=== PATIENT | female | born 1950 | race Caucasian/White ===

== ENCOUNTER 2016-12-14 08:00 | Outpatient (CLI) | payer MEDICARE, OTHER ==
[2016-12-14 21:16] LABS: H. PYLORI IGG ANTIBODY Negative (Negative); HPYLORI NEG QC Negative (Negative); HPYLORI POS QC POSITIVE (Positive)
== END 2016-12-14 23:59 | disposition home or self-care (01) ==
LOC: LAB.WCP 08:00
PROVIDERS: ATTEND Family Medicine
DX: K21.9 Gastro-esophageal reflux disease without esophagitis (principal)
CPT/HCPCS: 36415; 87339

== ENCOUNTER → 2019-01-13 | Outpatient (CLI) | payer MEDICARE, OTHER ==
--- NOTE | 2019-01-14 19:09 | XRAY Report ---
Reason: COUGH Procedure Date: 01/13/2019 Accession Number: [id number] / [id number] Procedure: WCP - Chest 2 View X-Ray CPT Code: 64781 FULL RESULT: EXAM: CHEST RADIOGRAPHY EXAM DATE: 01/13/2019 11:25 AM. CLINICAL HISTORY: COUGH. COMPARISON: XR CHEST PA AND LAT 04/05/2007 12:25 PM. TECHNIQUE: 2 views. FINDINGS: Lungs/Pleura: Patchy left lower lobe opacity. No vascular congestion. Right cardiophrenic density also present. No pneumothorax. No pleural effusions. No vascular congestion. Mediastinum: Heart size upper normal. Aorta is mildly tortuous. Other: Degenerative changes of the thoracic spine. IMPRESSION: 1. Patchy left lower lobe opacity concerning for developing consolidation. Follow radiographs are recommended to reassess the left lower lobe opacity and right cardiophrenic density. 2. Right cardiophrenic density new compared to the radiographs from 04/05/2007. RADIA
== END ==
LOC: DI.WCP 11:15 → EDSTATUS 13:18
PROVIDERS: ATTEND Family Medicine
DX: R91.8 Other nonspecific abnormal finding of lung field (principal)
CPT/HCPCS: 71046

== ENCOUNTER → 2019-01-24 | Outpatient (CLI) | payer MEDICARE, OTHER ==
--- NOTE | 2019-01-24 10:11 | XRAY Report ---
Reason: COUGH Procedure Date: 01/24/2019 Accession Number: [id number] / [id number] Procedure: WCP - Chest 2 View X-Ray CPT Code: 80030 FULL RESULT: EXAM: CHEST RADIOGRAPHY EXAM DATE: 01/24/2019 09:32 AM. CLINICAL HISTORY: Cough. COMPARISON: CHEST 2 VIEW 01/13/2019 11:07 AM XR CHEST PA AND LAT 04/05/2007 12:25 PM. TECHNIQUE: 2 views. FINDINGS: Lungs/Pleura: The right lung appears clear. Persistent minimal atelectasis or infiltrate at the anterior left lung base. No pleural fluid collections. Mediastinum: Heart and mediastinal contours are unremarkable. Other: None. IMPRESSION: Persistent minimal atelectasis or infiltrate left lung base. Right lung base appears clear. RADIA
== END ==
LOC: DI.WCP 09:20 → EDSTATUS 13:26
PROVIDERS: ATTEND Family Medicine
DX: R91.8 Other nonspecific abnormal finding of lung field (principal)
CPT/HCPCS: 71046

== ENCOUNTER → 2019-02-20 | Outpatient (CLI) | payer MEDICARE, OTHER ==
--- NOTE | 2019-02-20 23:07 | XRAY Report ---
Reason: COUGH Procedure Date: 02/20/2019 Accession Number: [id number] / [id number] Procedure: WCP - Chest 2 View X-Ray CPT Code: 73807 FULL RESULT: EXAM: CHEST RADIOGRAPHY. EXAM DATE: 02/20/2019 09:42 AM. CLINICAL HISTORY: Cough. Pain in the bottom of the left scapula, going through the chest and into the left breast when breathing for the past 3 days. COMPARISON: CHEST 2 VIEW 01/24/2019 9:12 AM. CHEST 2 VIEW 01/13/2019 11:07 AM. TECHNIQUE: 2 views. FINDINGS: Lungs/Pleura: No focal opacities evident. No pleural effusion. No pneumothorax. Normal volumes. Mediastinum: Heart and mediastinal contours are unremarkable. Other: Moderate to severe multilevel thoracic degenerative change noted. IMPRESSION: Stable appearance of the chest without acute cardiopulmonary abnormality. RADIA
== END ==
LOC: DI.WCP 09:20 → EDSTATUS 13:46
PROVIDERS: ATTEND Family Medicine
DX: R05 Cough (principal)
CPT/HCPCS: 71046

== ENCOUNTER 2019-06-29 08:40 | Day surgery (SDC) | payer MEDICARE, OTHER ==
[~2019-06-29 08:40] MED LIST: BRIMONIDINE 0.2% OPHTH DROPS 5 ML ONE; BSS/LIDOCAINE/EPINEPHRINE 1 ML SYRINGE ONE; CYCLOPENTOLATE 1% OPHTH DROPS 2 ML ONE; PHENYLEPHRINE 2.5% OPHTH 2 ML DROPS ONE; PROPARACAINE 0.5% OPHTH DROPS 15 ML ONE; TIMOLOL 0.5% OPHTH DROPS ONE; TRIAMCIN/MOXIFLOX OPHTHALMIC 0.6 ML VIAL IO ONE; VANCOMYCIN OPHTHALMI 8MG/0.8ML 8 MG/0.8 ML SYRINGE IO ONE
[2019-06-29] MEDS ORDERED: MIDAZOLAM 2 MG/2 ML VIAL IVP ONE (08:41)
[2019-06-29] MEDS ORDERED: LACTATED RINGERS 500 ML IV ONE (08:44)
[2019-06-29] MEDS ORDERED: CYCLOPENTOLATE 1% OPHTH DROPS 2 ML LEFTEYE ONE (09:00)
[2019-06-29] MEDS ORDERED: KETOROLAC 0.45% OPHTH DROPS LEFTEYE ONE (09:00)
[2019-06-29] MEDS ORDERED: PROPARACAINE 0.5% OPHTH DROPS 15 ML LEFTEYE ONE ×2 (09:00→09:43)
[2019-06-29] MEDS ORDERED: PHENYLEPHRINE 2.5% OPHTH 2 ML DROPS LEFTEYE ONE (09:01)
--- NOTE | 2019-06-29 09:28 | ANESTHESIA ---
Pre-Anesthesia VS, & Labs - Diagnosis left nuclear cataract - Procedure left cataract extraction with intraocular lens implant Vital Signs: Temp Pulse Resp BP Pulse Ox 37 C 81 16 144/87 H 97 06/29/19 08:50 06/29/19 08:50 06/29/19 08:50 06/29/19 08:50 06/29/19 08:50 Height 5 ft 7 in Weight (kg) 117 kg - NPO >8 hours - Is Patient ?: Yes Home Medications and Allergies Home Medications: Ambulatory Orders No Known Home Medications 06/28/19 No Known Home Medications 06/28/19 Allergies/Adverse Reactions: Allergies Allergy/AdvReac Type Severity Reaction Status Date / Time No Known Drug Allergies Allergy Verified 06/28/19 13:09 Anes History & Medical History - Anesthetic History Anesthesia Complications: reports: No previous complications - Medical History Cardiovascular: reports: Murmur (cardiac workup 1 year ago at [facility] negative stress test) Pulmonary: reports: None, Shortness of breath (with exertion) Gastrointestinal: reports: None Urinary: reports: None Musculoskeletal: reports: Osteoarthritis Endocrine/Autoimmune: reports: None Skin: reports: None - Surgical History Orthopedic: Knee replacement Exam General: Alert Dental: WNL Mallampati classification: II Thyromental Distance: greater than 6 cm Respiratory: Lungs clear Cardiovascular: Regular rate, Other (2/6 murmur) Plan Anesthesia Type: MAC Consent for Procedure(s) Verified and Reviewed: Yes Code Status: Attempt Resuscitation ASA classification: 2-Mild systemic disease Is this case an emergency?: No
[2019-06-29] MEDS ORDERED: EPINEPHrine 1 MG/ML AMP IVP ONE (09:42)
[2019-06-29] MEDS ORDERED: BSS/LIDOCAINE/EPINEPHRINE 1 ML SYRINGE IO ONE (09:42)
[2019-06-29] MEDS ORDERED: BRIMONIDINE 0.2% OPHTH DROPS 5 ML OPTH ONE (09:42)
[2019-06-29] MEDS ORDERED: TIMOLOL 0.5% OPHTH DROPS OPTH ONE (09:42)
[2019-06-29] MEDS ORDERED: CHONDR SULF/HYALURONATE SYRINGE IO ONE (09:42)
[2019-06-29 10:17] VITALS: BP 135/85
--- NOTE | 2019-06-29 11:43 | OPERATIVE REPORT ---
DATE OF SERVICE: 06/29/2019 Physician: Amor Mayer MD PREOPERATIVE DIAGNOSIS: Visually significant cataract, left eye. This was her first cataract surger y. POSTOPERATIVE DIAGNOSIS: Visually significant cataract, left eye. This was her first cataract surge ry. DESCRIPTION OF PROCEDURE: Phacoemulsification with posterior chamber intraocular lens implant, left eye. SURGEON: Amor Mayer MD ANESTHESIA: Monitored anesthesia care. COMPLICATIONS: None. OPERATIVE INDICATIONS: This is a 68-year-old woman with progressive vision loss in the left eye due to 2+ nuclear sclerotic and 3+ cortical cataract. Best corrected visual acuity was 20/40, with glare to 20/125. Overall decrease in vision, difficulty seeing words on a computer screen, difficulty lorraine ding, difficulty seeing words, closed caption or game scores on TV, difficulty seeing street signs, d ifficulty driving in low light or at night, difficulty driving at night because of headlights from ot her vehicles, and difficulty with glare or bright lights in any situation. She was consented at [facility] concerning risks and benefits of cataract surgery, after which she expressed a desire to proceed w [facility] surgery. OPERATIVE PROCEDURE: Patient was taken to OR #3 and placed under monitored anesthesia care. Surgica l timeout was conducted confirming correct patient, correct procedure, and correct surgical site. Sh e was given topical anesthesia, and prepped and draped in the usual sterile fashion. The eye was ent ered at the 6 and 3 o'clock positions. Intracameral Shugarcaine was injected into the anterior chamb er, followed by Viscoat. A continuous-tear curvilinear capsulorrhexis was performed. The nucleus wa s hydrodissected and phacoemulsified. Cortex was evacuated using automated infusion and aspiration. Provisc was injected in the capsular bag, and a 20.0 diopter intraocular lens inserted in the bag. Infusion and aspiration was used to evacuate the viscoelastic materials. The eye was inflated to phy siologic pressure using balanced salt solution and found to be watertight. Approximately 0.25 mL of a mixture of triamcinolone, moxifloxacin was injected transsclerally into the vitreous and inferotemp oral quadrant. An additional 0.55 mL of a mixture of triamcinolone, moxifloxacin and vancomycin was injected subconjunctivally in the superior quadrant for infection and inflammation prophylaxis. Woun d integrity was checked with Weck-Deb sponges. Patient was taken from the operating room in good con dition and given postoperative instructions. TD: 06/29/2019 10:00
== END 2019-06-29 08:41 | disposition home or self-care (01) ==
LOC: SDS 08:40
PROVIDERS: ATTEND Ophthalmology
PROC: 08RK3JZ Replacement of Left Lens with Synthetic Substitute, Percutaneous Approach (ICD-10-PCS; principal; 2019-06-29 10:00)
DX: H25.12 Age-related nuclear cataract, left eye (principal); R01.1 Cardiac murmur, unspecified; Z96.659 Presence of unspecified artificial knee joint; Z87.891 Personal history of nicotine dependence; Z79.82 Long term (current) use of aspirin
CPT/HCPCS: 66984; A9270; J3490; V2632

== ENCOUNTER 2019-07-27 08:15 | Day surgery (SDC) | payer MEDICARE, OTHER ==
[~2019-07-27 08:15] MED LIST changes: -BRIMONIDINE 0.2% OPHTH DROPS 5 ML ONE; -BSS/LIDOCAINE/EPINEPHRINE 1 ML SYRINGE ONE; +KETOROLAC 0.45% OPHTH DROPS ONE; -TIMOLOL 0.5% OPHTH DROPS ONE; -TRIAMCIN/MOXIFLOX OPHTHALMIC 0.6 ML VIAL IO ONE; -VANCOMYCIN OPHTHALMI 8MG/0.8ML 8 MG/0.8 ML SYRINGE IO ONE
[2019-07-27] MEDS ORDERED: MIDAZOLAM 2 MG/2 ML VIAL IVP ONE (08:16)
[2019-07-27] MEDS ORDERED: BSS/LIDOCAINE/EPINEPHRINE 1 ML SYRINGE ONE (08:31)
[2019-07-27] MEDS ORDERED: BRIMONIDINE 0.2% OPHTH DROPS 5 ML ONE (08:31)
[2019-07-27] MEDS ORDERED: timoloL maleate 0.5% OPHTH DROPS (10ML) ONE (08:31)
[2019-07-27] MEDS ORDERED: VANCOMYCIN OPHTHALMI 8MG/0.8ML 8 MG/0.8 ML SYRINGE IO ONE ×2 (08:31→09:57)
[2019-07-27] MEDS ORDERED: TRIAMCIN/MOXIFLOX OPHTHALMIC 0.6 ML VIAL IO ONE ×2 (08:31→09:57)
[2019-07-27] MEDS ORDERED: LACTATED RINGERS 500 ML IV ONE (08:43)
[2019-07-27] MEDS ORDERED: PHENYLEPHRINE 2.5% OPHTH 2 ML DROPS RIGHTEYE ONE (08:55)
[2019-07-27] MEDS ORDERED: KETOROLAC 0.45% OPHTH DROPS RIGHTEYE ONE (08:55)
[2019-07-27] MEDS ORDERED: CYCLOPENTOLATE 1% OPHTH DROPS 2 ML RIGHTEYE ONE (08:55)
[2019-07-27] MEDS ORDERED: PROPARACAINE 0.5% OPHTH DROPS 15 ML RIGHTEYE ONE ×2 (08:55→09:56)
--- NOTE | 2019-07-27 09:15 | ANESTHESIA ---
Pre-Anesthesia VS, & Labs - Diagnosis right eye cataract removal - Procedure right eye cataract removal Vital Signs: Temp Pulse Resp BP Pulse Ox 36.8 C 76 20 143/71 H 96 07/27/19 08:43 07/27/19 08:43 07/27/19 08:43 07/27/19 08:43 07/27/19 08:43 Height 5 ft 6 in Weight (kg) 119 kg - Is Patient ?: No Home Medications and Allergies No Known Home Medications 06/28/19 Allergies/Adverse Reactions: Allergies Allergy/AdvReac Type Severity Reaction Status Date / Time No Known Drug Allergies Allergy Verified 07/27/19 08:31 Anes History & Medical History - Anesthetic History Anesthesia Complications: reports: No previous complications Family history of Anesthesia Complications: Denies Family history of Malignant Hyperthermia: Denies - Medical History Cardiovascular: reports: None, Murmur Pulmonary: reports: None, Shortness of breath Gastrointestinal: reports: None Urinary: reports: None Neuro: reports: None Musculoskeletal: reports: Osteoarthritis Endocrine/Autoimmune: reports: None Blood Disorders: reports: None Skin: reports: None Smoking Status: Never smoker Psychosocial: reports: No issues indicated, Alcohol (daily two glasses of wine) - Surgical History Eyes Ears Nose Throat (EENT): Cataracts Orthopedic: Knee replacement Exam General: Alert, Oriented x3, Cooperative, No acute distress Dental: WNL Mouth Openin Fingerbreadth Neck Mobility: Normal Mallampati classification: I Thyromental Distance: 4-6 cm Respiratory: Lungs clear, Normal breath sounds, No respiratory distress, No accessory muscle use Cardiovascular: Regular rate, Normal S1, Normal S2, No murmurs Abdomen: Normal bowel sounds, Soft, No tenderness, No hepatospenomegaly, No mas ses Extremities: No clubbing, No cyanosis, No edema, Normal pulses, No tenderness/swelling Neurological: Normal gait, Normal speech, Strength at 5/5 X4 ext, Normal tone, Sensation intact, Cranial nerves 3-12 NL, Reflexes 2+ Mental/Cognitive Status: Alert/Oriented X3, Normal for patient Cognitive Status: Within normal limits Plan Anesthesia Type: MAC Consent for Procedure(s) Verified and Reviewed: Yes Code Status: Attempt Resuscitation ASA classification: 2-Mild systemic disease Is this case an emergency?: No
[2019-07-27] MEDS ORDERED: BRIMONIDINE 0.2% OPHTH DROPS 5 ML OPTH ONE (09:55)
[2019-07-27] MEDS ORDERED: CHONDR SULF/HYALURONATE SYRINGE IO ONE (09:56)
[2019-07-27] MEDS ORDERED: EPINEPHrine 1 MG/ML AMP IVP ONE (09:56)
[2019-07-27] MEDS ORDERED: BSS/LIDOCAINE/EPINEPHRINE 1 ML SYRINGE IO ONE (09:56)
[2019-07-27] MEDS ORDERED: TIMOLOL 0.5% OPHTH DROPS OPTH ONE (09:56)
[2019-07-27 10:29] VITALS: BP 141/81
--- NOTE | 2019-07-27 10:40 | OPERATIVE REPORT ---
DATE OF SERVICE: 07/27/2019 Physician: Amor Mayer MD PREOPERATIVE DIAGNOSIS: Visually significant cataract, right eye. Cataract surgery was performed on her left eye on 06/29/2019. POSTOPERATIVE DIAGNOSIS: Visually significant cataract, right eye. Cataract surgery was performed o n her left eye on 06/29/2019. PROCEDURE: Phacoemulsification with posterior chamber intraocular lens implant, right eye. SURGEON: Amor Mayer MD ANESTHESIA: Monitored anesthesia care. COMPLICATIONS: None. OPERATIVE INDICATIONS: This is a 68-year-old woman with progressive vision loss in the right eye due to 2+ nuclear sclerotic cataract. Best corrected visual acuity was 20/25, with glare to 20/125 in t he right eye. Indications for surgery were overall decrease in vision, difficulty seeing words on a computer screen, difficulty reading, difficulty seeing words, closed caption or game scores on TV, di fficulty seeing street signs, difficulty driving in low light or at night, [facility] because of [facility]lights from other vehicles, and difficulty with glare or bright lights in any situat ion. She was consented at length concerning risks and benefits of cataract surgery, after which she expressed a desire to proceed with surgery. OPERATIVE PROCEDURE: The patient was taken to OR #3 and placed under monitored anesthesia care. A s urgical timeout was conducted confirming correct patient, correct procedure, and correct surgical sit e. She was given topical anesthesia, and prepped and draped in the usual sterile fashion. The eye w as entered at the 12 and 9 o'clock positions. Intracameral Shugarcaine was injected into the anterio r chamber, followed by Viscoat. A continuous-tear curvilinear capsulorrhexis was performed. The nuc leus was hydrodissected and phacoemulsified. The cortex was evacuated using automated infusion and a spiration. Provisc was injected in the capsular bag, and a 20.0 diopter intraocular lens inserted in the bag. Infusion and aspiration was used to evacuate the viscoelastic materials. The eye was infl ated to physiologic pressure using balanced salt solution and found to be watertight. Approximately 0.25 mL of a mixture of triamcinolone, moxifloxacin was injected transsclerally into the vitreous in the inferotemporal quadrant. An additional 0.55 mL of a mixture of triamcinolone, moxifloxacin and v ancomycin was injected subconjunctivally in the superior quadrant for infection and inflammation prop hylaxis. Wound integrity was checked with Weck-Deb sponges. The patient was taken from the operatin g room in good condition and given postoperative instructions. TD: 07/27/2019 10:15
== END 2019-07-27 08:16 | disposition home or self-care (01) ==
LOC: SDS 08:15
PROVIDERS: ATTEND Ophthalmology
DX: H25.11 Age-related nuclear cataract, right eye (principal); Z98.41 Cataract extraction status, right eye
CPT/HCPCS: 66984; A9270; J3490; V2632

== ENCOUNTER 2019-11-22 09:00 | Outpatient (CLI) | payer MEDICARE, OTHER ==
[2019-11-22 11:58] LABS: BASOPHILS # (AUTO) 0.1 10^3/uL (0.0-0.1); BASOPHILS % (AUTO) 0.9 %; EOSINOPHILS # (AUTO) 0.3 10^3/uL (0.0-0.7); EOSINOPHILS % (AUTO) 4.5 %; HGB - HEMOGLOBIN 13.7 g/dL (12.0-16.0); LYMPHOCYTES # (AUTO) 1.5 10^3/uL (1.5-3.5); LYMPHOCYTES % (AUTO) 25.8 %; MEAN CORPUSCULAR HEMOGLOBIN 30.4 pg (27.0-31.0); MEAN CORPUSCULAR HGB CONC 31.1 g/dL (32.0-36.0); MEAN CORPUSCULAR VOLUME 97.6 fL (81.0-99.0); MEAN PLATELET VOLUME 9.5 fL (7.9-10.8); MONOCYTES # (AUTO) 0.4 10^3/uL (0.0-1.0); MONOCYTES % (AUTO) 6.2 %; NEUTROPHILS # (AUTO) 3.6 10^3/uL (1.5-6.6); NEUTROPHILS % (AUTO) 62.1 %; PLT - PLATELET COUNT 242 10^3/uL (130-450); RED BLOOD COUNT 4.51 10^6/uL (4.20-5.40); RED CELL DISTRIBUTION WIDTH 12.2 % (12.0-15.0); WHITE BLOOD COUNT 5.8 x10^3/uL (4.8-10.8)
[2019-11-22 12:54] LABS: ALBUMIN/GLOBULIN RATIO 1.2 (1.0-2.2); ALKALINE PHOSPHATASE 55 IU/L (42-121); ALT ALANINE AMINOTRANSFERASE 20 IU/L (10-60); AST ASPARTATE AMINOTRANSFERASE 21 IU/L (10-42); BILIRUBIN,TOTAL 0.5 mg/dL (0.2-1.0); BUN - BLOOD UREA NITROGEN 17 mg/dL (6-20); CARBON DIOXIDE - CO2 27 mmol/L (21-32); CHLORIDE 103 mmol/L (101-111); CHOL/HDL RATIO 4.1 (<4.4); CHOLESTEROL 236 mg/dL; CREATININE 0.7 mg/dL (0.4-1.0); GLUCOSE 97 mg/dL (70-100); HDL CHOLESTEROL 58 mg/dL; LDL CHOLESTEROL,CALCULATED 133 mg/dL; LDL/HDL RATIO 2.3 (<4.4); SODIUM 138 mmol/L (135-145); TOTAL PROTEIN 7.3 g/dL (6.7-8.2); VLDL CHOLESTEROL 45 mg/dL
[2019-11-22 13:18] LABS: HB2 TOTAL 14.4 g/dL; HEMOGLOBIN A1C 0.55 g/dL; HEMOGLOBIN A1C % 5.6 % (4.6-6.2)
== END 2019-11-22 23:59 | disposition home or self-care (01) ==
LOC: LAB.WCP 09:00
PROVIDERS: ATTEND Family Medicine
DX: R63.5 Abnormal weight gain (principal); R05 Cough; E66.01 Morbid (severe) obesity due to excess calories
CPT/HCPCS: 36415; 80053; 80061; 83036; 83721; 84443; 85025

== ENCOUNTER 2020-04-23 07:57 | Outpatient (CLI) | payer MEDICARE, OTHER ==
[2020-04-23 08:49] LABS: CHOL/HDL RATIO 3.5 (<4.4); CHOLESTEROL 225 mg/dL; HDL CHOLESTEROL 65 mg/dL; LDL CHOLESTEROL,CALCULATED 150 mg/dL; LDL/HDL RATIO 2.3 (<4.4); VLDL CHOLESTEROL 10 mg/dL
== END 2020-04-23 07:58 | disposition home or self-care (01) ==
LOC: LAB 07:57
PROVIDERS: ATTEND Family Medicine
DX: E78.5 Hyperlipidemia, unspecified (principal)
CPT/HCPCS: 36415; 80061; 83721

== ENCOUNTER 2020-04-23 08:00 | Outpatient (CLI) | payer MEDICARE, OTHER | END 2020-04-23 23:59 | disposition home or self-care (01) | LOC: LAB.R 08:00 | PROVIDERS: ATTEND Family Medicine | DX: Z12.11 Encounter for screening for malignant neoplasm of colon (principal) | CPT/HCPCS: 82274 ==

== ENCOUNTER 2020-11-27 08:00 | Outpatient (CLI) | payer MEDICARE, OTHER ==
[2020-11-27 12:16] LABS: BASOPHILS # (AUTO) 0.1 10^3/uL (0.0-0.1); BASOPHILS % (AUTO) 1.2 %; EOSINOPHILS # (AUTO) 0.1 10^3/uL (0.0-0.7); EOSINOPHILS % (AUTO) 3.4 %; HCT - HEMATOCRIT 41.5 % (37.0-47.0); HGB - HEMOGLOBIN 13.4 g/dL (12.0-16.0); LYMPHOCYTES # (AUTO) 1.3 10^3/uL (1.5-3.5); LYMPHOCYTES % (AUTO) 30.4 %; MEAN CORPUSCULAR HEMOGLOBIN 32.7 pg (27.0-31.0); MEAN CORPUSCULAR HGB CONC 32.3 g/dL (32.0-36.0); MEAN CORPUSCULAR VOLUME 101.2 fL (81.0-99.0); MEAN PLATELET VOLUME 9.7 fL (7.9-10.8); MONOCYTES # (AUTO) 0.3 10^3/uL (0.0-1.0); MONOCYTES % (AUTO) 8.2 %; NEUTROPHILS # (AUTO) 2.3 10^3/uL (1.5-6.6); NEUTROPHILS % (AUTO) 56.6 %; PLT - PLATELET COUNT 233 10^3/uL (130-450); RED CELL DISTRIBUTION WIDTH 12.9 % (12.0-15.0); WHITE BLOOD COUNT 4.1 x10^3/uL (4.8-10.8)
[2020-11-27 12:35] LABS: ALBUMIN 4.5 g/dL (3.2-5.5); ALBUMIN/GLOBULIN RATIO 1.5 (1.0-2.2); ALKALINE PHOSPHATASE 36 IU/L (42-121); ALT ALANINE AMINOTRANSFERASE 19 IU/L (10-60); AST ASPARTATE AMINOTRANSFERASE 19 IU/L (10-42); BILIRUBIN,TOTAL 0.7 mg/dL (0.2-1.0); BUN - BLOOD UREA NITROGEN 15 mg/dL (6-20); CALCIUM 9.6 mg/dL (8.5-10.3); CARBON DIOXIDE - CO2 29 mmol/L (21-32); CHLORIDE 99 mmol/L (101-111); CHOL/HDL RATIO 3.6 (<4.4); CHOLESTEROL 230 mg/dL; CREATININE 0.6 mg/dL (0.4-1.0); GFR - MDRD 99 (>89); GLUCOSE 109 mg/dL (70-100); HDL CHOLESTEROL 64 mg/dL; POTASSIUM 4.4 mmol/L (3.5-5.0); SODIUM 139 mmol/L (135-145); TOTAL PROTEIN 7.5 g/dL (6.7-8.2); TRIGLYCERIDES 32 mg/dL
[2020-11-27 12:44] LABS: THYROID STIMULATING HORMONE 2.53 uIU/mL (0.34-5.60)
== END 2020-11-27 23:59 | disposition home or self-care (01) ==
LOC: LAB.WCP 08:00
PROVIDERS: ATTEND Family Medicine
DX: I10 Essential (primary) hypertension (principal); E78.5 Hyperlipidemia, unspecified
CPT/HCPCS: 36415; 80053; 80061; 83721; 84443; 85025

== ENCOUNTER 2021-08-05 14:51 | Outpatient (CLI) | payer MEDICARE, OTHER ==
[2021-08-05 15:09] LABS: FECAL OCCULT BLOOD (FIT) NEGATIVE (NEGATIVE)
== END 2021-08-05 14:52 | disposition home or self-care (01) ==
LOC: LAB 14:51
PROVIDERS: ATTEND Family Medicine
DX: Z12.11 Encounter for screening for malignant neoplasm of colon (principal)
CPT/HCPCS: 82274

== ENCOUNTER 2022-08-27 07:21 | Outpatient (CLI) | payer MEDICARE, OTHER ==
[2022-08-27 07:39] LABS: BASOPHILS # (AUTO) 0.1 10^3/uL (0.0-0.1); BASOPHILS % (AUTO) 1.5 %; EOSINOPHILS # (AUTO) 0.3 10^3/uL (0.0-0.7); EOSINOPHILS % (AUTO) 5.9 %; HCT - HEMATOCRIT 39.9 % (37.0-47.0); HGB - HEMOGLOBIN 12.7 g/dL (12.0-16.0); LYMPHOCYTES # (AUTO) 1.5 10^3/uL (1.5-3.5); LYMPHOCYTES % (AUTO) 30.5 %; MEAN CORPUSCULAR HEMOGLOBIN 31.9 pg (27.0-31.0); MEAN CORPUSCULAR HGB CONC 31.8 g/dL (32.0-36.0); MEAN CORPUSCULAR VOLUME 100.3 fL (81.0-99.0); MEAN PLATELET VOLUME 8.8 fL (7.9-10.8); MONOCYTES # (AUTO) 0.3 10^3/uL (0.0-1.0); MONOCYTES % (AUTO) 6.7 %; NEUTROPHILS # (AUTO) 2.6 10^3/uL (1.5-6.6); PLT - PLATELET COUNT 223 10^3/uL (130-450); RED BLOOD COUNT 3.98 10^6/uL (4.20-5.40); RED CELL DISTRIBUTION WIDTH 12.3 % (12.0-15.0); WHITE BLOOD COUNT 4.8 x10^3/uL (4.8-10.8)
[2022-08-27 07:55] LABS: ALBUMIN 3.9 g/dL (3.2-5.5); ALBUMIN/GLOBULIN RATIO 1.4 (1.0-2.2); ALKALINE PHOSPHATASE 48 IU/L (42-121); ALT ALANINE AMINOTRANSFERASE 20 IU/L (10-60); AST ASPARTATE AMINOTRANSFERASE 19 IU/L (10-42); BILIRUBIN,TOTAL 0.3 mg/dL (0.2-1.0); BUN - BLOOD UREA NITROGEN 20 mg/dL (6-20); CALCIUM 8.5 mg/dL (8.5-10.3); CARBON DIOXIDE - CO2 31 mmol/L (21-32); CHLORIDE 101 mmol/L (101-111); CHOLESTEROL 199 mg/dL; CREATININE 0.5 mg/dL (0.4-1.0); GFR - MDRD 121 (>89); GLUCOSE 104 mg/dL (70-100); HDL CHOLESTEROL 66 mg/dL; LDL CHOLESTEROL,CALCULATED 122 mg/dL; LDL/HDL RATIO 1.8 (<4.4); POTASSIUM 4.4 mmol/L (3.5-5.0); SODIUM 138 mmol/L (135-145); TOTAL PROTEIN 6.6 g/dL (6.7-8.2); TRIGLYCERIDES 57 mg/dL; VLDL CHOLESTEROL 11 mg/dL
[2022-08-27 08:06] LABS: THYROID STIMULATING HORMONE 2.39 uIU/mL (0.34-5.60)
== END 2022-08-27 07:22 | disposition home or self-care (01) ==
LOC: LAB 07:21
PROVIDERS: ATTEND Nurse Practitioner
DX: I10 Essential (primary) hypertension (principal); E78.5 Hyperlipidemia, unspecified; F32.A Depression, unspecified
CPT/HCPCS: 36415; 80053; 80061; 83721; 84443; 85025

== ENCOUNTER 2023-02-18 10:00 | Outpatient (CLI) | payer MEDICARE, OTHER ==
--- NOTE | 2023-02-18 12:45 | CT Report ---
PROCEDURE: CT chest with contrast INDICATIONS: FORMER SMOKER CHRONIC COUGH TECHNIQUE: Helical axial CT of the chest was obtained after an intravenous contrast injection and ref ormatted in multiple planes. Radiation dose reduction was achieved using automated exposure control, adjustment of mA and/or kV according to patient size. COMPARISON: None FINDINGS: Lungs and pleura: No consolidation. No pleural effusions. No pneumothorax. No suspicious pulmonary n odules which require follow up. Mediastinum: Heart size is normal. No pericardial effusion. No large vessel abnormality. No mediastin al adenopathy by size criteria. Chest wall and lower neck: Thyroid is unremarkable. No axillary or supraclavicular adenopathy by size . Bones: No aggressive osseous abnormality. Upper Abdomen: Unremarkable. IMPRESSION: Unremarkable CT of the chest. No evidence of pulmonary nodule, infiltrate or adenopathy Reviewed by: Get Crow MD on 02/18/2023 11:44 AM RONA Approved by: Get Crow MD on 02/18/2023 11:44 AM AKYESSICA Station ID: [id number]
[2023-02-18] MEDS ORDERED: iohexoL-300 100 ML VIAL IVP ONE (13:44)
== END 2023-02-18 10:01 | disposition home or self-care (01) ==
LOC: DI 10:00
PROVIDERS: ATTEND Registered Nurse
DX: R05.3 Chronic cough (principal); Z87.891 Personal history of nicotine dependence; Z57.5 Occupational exposure to toxic agents in other industries
CPT/HCPCS: 71260; Q9967

== ENCOUNTER 2023-10-06 11:47 | Outpatient (CLI) | payer MEDICARE, OTHER ==
--- NOTE | 2023-10-06 16:32 | Ultrasound Report ---
PROCEDURE: Abdomen Limited INDICATIONS: INGUINAL HERNIA,LEFT TECHNIQUE: Real-time focused scanning was performed of the left inguinal region, with image documentation. COMPARISONS: None. FINDINGS: Evaluation of the left inguinal region is markedly limited secondary to the presence of bowel gas. Th ere is movement of the anterior pelvic wall with Valsalva which may be secondary to a hernia. IMPRESSION: Evaluation of the left inguinal region is markedly limited secondary to the presence of bowel gas. Th ere is movement of the anterior pelvic wall with Valsalva which may be secondary to a hernia. Recomm end a CT of the pelvis for further evaluation. Reviewed by: Caitlin Knight MD on 10/06/2023 4:31 PM PDT Approved by: Caitlin Knight MD on 10/06/2023 4:31 PM PDT Station ID: [id number]
== END 2023-10-06 11:48 | disposition home or self-care (01) ==
LOC: DI 11:47
PROVIDERS: ATTEND Physician Assistant
DX: K40.90 Unilateral inguinal hernia, without obstruction or gangrene, not specified as recurrent (principal)

== ENCOUNTER 2023-10-12 16:11 | Outpatient (CLI) | payer MEDICARE, OTHER ==
[2023-10-12] MEDS ORDERED: iohexoL-300 100 ML VIAL ONE (16:15)
[2023-10-12] MEDS ORDERED: DIATRIZOATE MEGLU/DIATRIZO SOD 30 ML BOTTLE PO ONE (16:15)
[2023-10-12 17:39] LABS: CREATININE 0.8 mg/dL (0.6-1.3)
[2023-10-12] MEDS: iohexoL-300 100 ML VIAL IVP ONE (18:21)
[2023-10-12] MEDS: DIATRIZOATE MEGLU/DIATRIZO SOD 30 ML BOTTLE PO ONE (18:22)
--- NOTE | 2023-10-12 19:11 | CT Report ---
PROCEDURE: Abdomen/Pelvis W INDICATIONS: L INGUINAL HERNIA CONTRAST: 100ML [id number] TECHNIQUE: After the administration of intravenous contrast, a CT scan of the abdomen and pelvis was performed. Images were recorded and evaluated at appropriate window settings. Reformats: coronal and sagittal. F or radiation dose reduction, the following was used: automated exposure control, adjustment of mA and /or kV according to patient size. COMPARISON: Ultrasound 10/06/2023 FINDINGS: Image quality: Diagnostic. Lower chest: Unremarkable. Liver: No solid mass. Focal fat adjacent to the falciform ligament. Gallbladder: No radiopaque stones or wall thickening. Biliary tree: No intrahepatic or extrahepatic dilation, accounting for age. Spleen: No splenomegaly. Pancreas: No pancreatic ductal dilation. Adrenals: No adrenal nodule. Kidneys and ureters: No hydronephrosis. No renal cystic lesion which requires follow up. No solid mas s. Stomach, bowel and peritoneum: No gastric or small bowel dilation. No abnormal wall thickening. No pa thologic free fluid. Lymph nodes: No central or retroperitoneal adenopathy. Vessels: No infrarenal aortic aneurysm. Patent portal vein. PELVIS Reproductive organs: Unremarkable. Bladder: No abnormal wall thickening, accounting for underdistention. Pelvic lymph nodes: No pelvic adenopathy by size criteria. Bones: No aggressive osseous abnormality. Degenerative disc disease, predominantly of the lumbar spin e. Grade 1 anterolisthesis of L4 on L5, L3 on L4, and L5 on S1 secondary to facet arthrosis. Opposing endplate sclerosis at T12-L1. Other: Small umbilical hernia containing fat. Small to moderate, left inguinal hernia containing infl aileen fat. IMPRESSION: Small to moderate, left inguinal hernia containing inflamed fat. Small umbilical hernia containing fat. Reviewed by: Sharad Velez MD on 10/12/2023 7:10 PM PDT Approved by: Sharad Velez MD on 10/12/2023 7:10 PM PDT Station ID: [id number]
== END 2023-10-12 16:12 | disposition home or self-care (01) ==
LOC: LAB 16:11
PROVIDERS: ATTEND Physician Assistant
DX: K40.90 Unilateral inguinal hernia, without obstruction or gangrene, not specified as recurrent (principal); K42.9 Umbilical hernia without obstruction or gangrene
CPT/HCPCS: 36415; 74177; 82565; Q9963; Q9967